=== PATIENT | female | born 1965 | race Caucasian/White ===

== ENCOUNTER → 2019-01-20 | Outpatient (CLI) | payer BC ==
--- NOTE | 2019-01-20 11:21 | CONS ---
Assessment/Plan Assessment/Plan Hospital Course (Demo Recall) 53-year-old female with trochanteric bursitis and IT band tendinitis of the left lower extremity. She has not previously been on an NSAID regiment or done formal physical therapy. She does have a slight pelvic obliquity and low arches. I recommend arch supports. We will begin physical therapy for GT bursitis and IT band tendinitis as well as for pelvic stabilization and core strengthening. If patient's pelvic obliquity is fixed she may need a small shoe lift for an apparent leg length discrepancy. Plan: Meloxicam PT Follow-up 12 weeks Consultation Date/Type/Reason Admit Date/Time Date of Consultation: January 20, 2019 Reason for Consultation Left hip pain Date/Time of Note DATE: 01/20/19 TIME: 11:14 Hx of Present Illness This is a 53-year-old female who presents with a history of left hip pain x2 years. Patient states the pain is in the lateral aspect of the hip. The pain does not radiate to the knee. It is described as sharp at times and as a dull ache. The pain is rated as a 5/10 with activity and 7/10 at rest. Walking tolerance is not limited but does exacerbate the pain. No external support. The patient does admit to a limp. It is difficult to sleep on the affected side at night secondary to pain. There are no symptoms to suggest referred pain from the back with radicular symptoms. Treatment to date has included oral anti-inflammatories, activity modification. The patient states that treatment to date has not provided adequate relief of symptoms, prompting consultation. Duration: 2 years Injury: No Walking tolerance: Not limited Limp: Occasional Support: No Stairs: Uses normally Physical Therapy: No Injections: No NSAID's: Rare use of ibuprofen Prior surgery: None Back pain: Occasional Knee pain: Yes Risk of AVN : No Patient denies fever, chills, shortness of breath, chest pain, nausea/vomiting, constipation, diarrhea, numbness, and tingling. Past Medical History Diverticulitis Past Surgical History Partial colectomy secondary to diverticulitisJune 2017 Family History Significant Family History: no pertinent family hx Social History Alcohol Use: other (3-4 drinks a week) Smoking Status: Never smoker Drug Use: none Exam/Review of Systems Exam Vitals Weight: 168 pound Height: 5 feet 4 inches Temperature: 98.4 Heart Rate: 75 Blood Pressure: 151/90 Respiratory Rate: 14 Exam General: Alert, oriented. Vital signs: Noted on the chart. Heart: Regular rate and rhythm. Lungs: No respiratory distress. No accessory muscle use. Musculoskeletal: Well developed female in no apparent distress. Gait demonstrates a mild Trendelenburg with antalgic components and no short leg component. Standing, the pelvis is slightly oblique and supine there is no true leg length discrepancy. There is tenderness over trochanteric bursa with and IT band. Positive Obers Test Range of motion: Flexion: 130 Extension: 0 Internal rotation: 45 External rotation: 60 Abduction: 60 Adduction: 10 Sitting there is no significant pelvic obliquity. Minimal to no pain at the extremes of motion of the affected hip. Bilateral arches of the feet are decreased, but no true pes planus. Skin was intact throughout both lower extremities. Sensation intact to light touch in a sural, saphenous, deep peroneal, superficial peroneal, medial and lateral plantar nerve distribution. Neurovascular exam showed 5/5 strength in the abductors, quads, EHL/tibialis anterior/gastroc. Normal and symmetrical pulses were palpated in both the dorsalis pedis and posterior tibial arteries. There is no sign of venous stasis. Imaging Imaging The patient received a full set of films and personally reviewed by myself today in clinic including an AP pelvis and an AP and lateral of the affected hip. The hip is reduced. There is no significant loss of joint space. There is no osteophyte formation. There is no subchondral sclerosis. There are no subchondral cysts. There is no significant deformity of the the proximal femur, femoral neck, or acetabulum. The pelvis is in continuity. Bone quality radiographically: Good The pelvis is slightly oblique with the right hemipelvis lower than the left. BOSTON THOMAS MD January 20, 2019 11:21
--- NOTE | 2019-01-20 15:52 | RADRPT ---
PROCEDURE: XR Left hip and pelvis. CLINICAL INDICATION: Left hip pain and pelvic pain. TECHNIQUE: 3 views. Frontal pelvis. Frontal and lateral left hip. COMPARISON: None. FINDINGS: There is no fracture or dislocation. The soft tissues are normal. Articular surfaces are intact. There is no lytic or blastic lesion. There is no radiopaque foreign body. IMPRESSION: 1. Unremarkable images of the left hip. 2. Unremarkable frontal view of the pelvis. RPTAT: QQ .Servando Philippe MD, Date Time Electronically viewed and signed by .Servando Philippe MD, on 01/20/2019 15:51 .R/
== END | disposition home or self-care (01) ==
LOC: HKI 09:12
PROVIDERS: ATTEND Orthopaedic Surgery Adult Reconstructive Orthopaedic Surgery
DX: M70.62 Trochanteric bursitis, left hip (principal); M76.32 Iliotibial band syndrome, left leg
CPT/HCPCS: 73502; G0463